=== PATIENT | female | born 1990 | race Caucasian/White ===

== ENCOUNTER 2017-03-17 08:28 | Emergency (ER) | payer MEDICAID, OTHER ==
[~2017-03-17] VITALS: Ht 157.5 cm; Wt 75.0 kg
[~2017-03-17 08:28] MED LIST: BACT800T5 PO
[2017-03-17 08:30] VITALS: BP 120/80; PULSE 94; RESP 16; TEMP 98.4; O2SAT 99
--- NOTE | 2017-03-17 08:57 | PD ---
HPI Chief Complaint: Abdominal Pain Time Seen by Provider: 08:39 Travel History International Travel<30 days: No Contact w/Intl Traveler<30days: No Traveled to known affect area: No History of Present Illness HPI The patient is a 26-year-old female who presents emergency department for pelvic pain. The patient states she thought she had a UTI several days ago and took [id number] Azo. The patient did had some vaginal discharge which she thought was a yeast infection and use [id number] Monistat for 7 days. The patient states on the third day she was unable to insert the Monistat secondary to irritation of the vagina. Patient now complains of pelvic discomfort, mild burning, and yellow discharge. The patient is not been sexually active in the last month, but does have a history of Trichomonas. The patient also had nausea and vomiting earlier today with a temperature as high as 101.3 home. She denies any diarrhea. She denies any history of abdominal surgeries, but does note a ventral hernia secondary to previous delivery. The patient's symptoms are moderate, there are no alleviating or exacerbating factors. PFSH Past Medical History Asthma: Yes Cardiovascular Problems: No Gastrointestinal Disorders: No Genitourinary: No Musculoskeletal: No Neurologic: No Reproductive: No Respiratory: Yes ?: Not LMP: 3.5 WEEKS AGO : 0 Past Surgical History Section: Yes Social History Alcohol Use: No Tobacco Use: No Substance Use: No Allergies-Medications (Allergen,Severity, Reaction): Coded Allergies: Amoxicillin (Verified Allergy, Severe, SOB, 03/17/17) Erythromycin (Verified Allergy, Severe, SOB, 03/17/17) Penicillin (Verified Allergy, Severe, difficulty breathing, 03/17/17) Zithromax (Verified Allergy, Severe, Anaphylaxis, 03/17/17) Reported Meds & Prescriptions Reported Meds & Active Scripts Active No Active Prescriptions or Reported Medications Review of Systems Except as stated in HPI: all other systems reviewed are Neg General / Constitutional: Positive: Fever Cardiovascular: No: Chest Pain or Discomfort Respiratory: No: Shortness of Breath Gastrointestinal: Positive: Nausea, Vomiting, No: Abdominal Pain Genitourinary: Positive: Dysuria, Pelvic Pain, Discharge, No: Vaginal Bleeding Musculoskeletal: No: Myalgias, Arthralgias Skin: No Rash Physical Exam Narrative GENERAL: Awake, alert, pleasant 26 year-old female who appears her stated age and is in no acute respiratory distress. SKIN: Focused skin assessment warm/dry. HEAD: Atraumatic. Normocephalic. EYES: Pupils equal and round. No scleral icterus. No injection or drainage. ENT: No nasal bleeding or discharge. Mucous membranes pink and moist. NECK: Trachea midline. No JVD. CARDIOVASCULAR: Regular rate and rhythm. No murmur appreciated. RESPIRATORY: No accessory muscle use. Clear to auscultation. Breath sounds equal bilaterally. GASTROINTESTINAL: Abdomen soft, non-tender, nondistended. Negative Maria's. Negative McBurney's. No rebound tenderness. Pelvic: The exam was completed in the presence of a female nurse. External examination reveals no rashes or lesions. Speculum examination reveals copious yellow discharge in vaginal vault. Cervix is closed. No cervical motion tenderness. No adnexal tenderness. Back: No CVA tenderness. MUSCULOSKELETAL: No obvious deformities. No clubbing. No cyanosis. No edema. NEUROLOGICAL: Awake and alert. No obvious cranial nerve deficits. Motor grossly within normal limits. Normal speech. PSYCHIATRIC: Appropriate mood and affect; insight and judgment normal. Data Data Last Documented VS Vital Signs Date Time Temp Pulse Resp B/P Pulse Ox O2 Delivery O2 Flow Rate FiO2 03/17/17 08:30 98.4 94 16 120/80 99 Orders Gc And Chlamydia Pcr (03/17/17 08:50) Wet Prep Profile (03/17/17 08:50) Urinalysis - C+S If Indicated (03/17/17 08:50) Ed Urine Pregnancytest Poc (03/17/17 08:50) Ondansetron Odt (Zofran Odt) (03/17/17 09:00) Ceftriaxone Inj (Rocephin Inj) (03/17/17 09:30) Lidocaine 1% Inj (50 Ml) (Xylocaine 1% I (03/17/17 09:30) Urine Culture (03/17/17 09:10) Labs Laboratory Tests Test 03/17/17 03/17/17 09:10 09:20 Urine Collection Type CLEAN CATCH Urine Color YELLOW Urine Turbidity SLIGHT Urine pH 5.5 Urine Specific [place] 1.028 Urine Protein 30 mg/dL Urine Glucose (UA) NEG mg/dL Urine Ketones NEG mg/dL Urine Occult Blood SMALL Urine Nitrite NEG Urine Bilirubin NEG Urine Leukocyte Esterase MOD Urine RBC 25-49 /hpf Urine WBC INNUM /hpf Urine WBC Clumps MANY Urine Squamous Epithelial 6-8 /hpf Cells Urine Bacteria MANY /hpf Microscopic Urinalysis Comment CULTURE INDICATED Urine Collection Time 09:10 Clue Cells (Wet Prep) NONE SEEN Vaginal Trichomonas (Wet Prep) PRESENT Vaginal Yeast (Wet Prep) NONE SEEN MDM Medical Decision Making Medical Screen Exam Complete: Yes Emergency Medical Condition: Yes Medical Record Reviewed: Yes Interpretation(s) Laboratory Tests Test 03/17/17 03/17/17 09:10 09:20 Urine Collection Type CLEAN CATCH Urine Color YELLOW Urine Turbidity SLIGHT Urine pH 5.5 Urine Specific [place] 1.028 Urine Protein 30 mg/dL Urine Glucose (UA) NEG mg/dL Urine Ketones NEG mg/dL Urine Occult Blood SMALL Urine Nitrite NEG Urine Bilirubin NEG Urine Leukocyte Esterase MOD Urine RBC 25-49 /hpf Urine WBC INNUM /hpf Urine WBC Clumps MANY Urine Squamous Epithelial 6-8 /hpf Cells Urine Bacteria MANY /hpf Microscopic Urinalysis Comment CULTURE INDICATED Urine Collection Time 09:10 Clue Cells (Wet Prep) NONE SEEN Vaginal Trichomonas (Wet Prep) PRESENT Vaginal Yeast (Wet Prep) NONE SEEN Differential Diagnosis Differential diagnoses includes PID, cervicitis, Trichomonas, extra vaginosis, UTI, pyelonephritis, viral syndrome, gastritis, atypical appendicitis. Narrative Course UA was sent to lab. Bedside test was obtained. A pelvic exam was completed in the presence of a female nurse and wet prep was sent to lab. The patient was administered Zofran 4 mg ODT. UA test is negative. The patient's allergy to penicillin as rash, she is had Keflex in the past without difficulty. Pelvic examination reveals copious yellow discharge in vaginal vault, therefore, patient was administered Rocephin 250 mg IM. She is unable to have Zithromax to cover for Chlamydia secondary to allergy, therefore, will be treated with doxycycline 100 mg twice a day for 7 days. UA reveals innumerable WBCs, however, wet prep is positive for Trichomonas. 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 The patient will be treated, is advised to return if symptoms worsen or progress. Diagnosis Primary Impression: Trichomonas vaginitis Additional Impression: Pelvic pain Patient Instructions: General Instructions Additional Instructions: Medications as directed. Follow-up with your primary physician. Discussed with sexual partners. Return if symptoms worsen or progress. Med/Other Pt SpecificInfo: Prescription(s) given Scripts Metronidazole (Flagyl)500 Mg Nio574 Mg PO BID 7 Days Ref 0 Prov:Khari Benson MD 03/17/17 Doxycycline Hyclate 100 Mg Vsf025 Mg PO BID 7 Days Ref 0 Prov:Khari Benson MD 03/17/17 Disposition: 01 DISCHARGE HOME Condition: Stable Khari Benson MD Mar 17, 2017 08:57
[2017-03-17] MEDS ORDERED: ONDANSETRON ODT 4 MG TAB PO ONE (09:00)
[2017-03-17 09:27] LABS: BLOOD, URINE SMALL (NEG); GLUCOSE,URINE NEG (NEG); KETONE, URINE NEG (NEG); NITRITE,URINE NEG (NEG); PH, URINE 5.5 (5.0-8.5)
[2017-03-17] MEDS ORDERED: LIDOCAINE HCL 1% 50 ML VIAL IM ONE (09:30)
[2017-03-17] MEDS ORDERED: cefTRIAXone 250 MG VIAL IM ONE (09:30)
[2017-03-17 09:36] LABS: METHOD OF COLLECTION CLEAN CATCH; URINE COLOR YELLOW (YELLW/STRAW); WBC, URINE INNUM /hpf (0-5)
[2017-03-17 09:37] LABS: BACTERIA, URINE MANY /hpf; COMMENT (UR) CULTURE INDICATED; CULTURE IF INDICATED CULTURE INDICATED
[2017-03-17] MEDS ORDERED: DOXY100C PO (09:54)
[2017-03-17] MEDS ORDERED: METR-1 PO (09:54)
[2017-03-17 10:36] VITALS: BP 114/68; PULSE 74; RESP 16; O2SAT 97
[2017-03-17 15:33] LABS: CHLAMYDIA PCR NOT DETECTED (NOT DETECT); NEISSERIA PCR NOT DETECTED (NOT DETECT)
== END 2017-03-17 10:42 | disposition home or self-care (01) ==
LOC: PHED 08:28
DX: A59.01 Trichomonal vulvovaginitis (principal); R10.2 Pelvic and perineal pain
CPT/HCPCS: 81001; 84703; 87086; 87210; 87491; 87591; 96372; 99283; J0696